=== PATIENT | female | born 1930 | race Caucasian/White ===

== ENCOUNTER → 2018-04-12 | Outpatient (CLI) | payer MEDICARE ==
[~2018-04-12] MED LIST: REGADENOSON 0.4 MG/5 ML SYR IV ONE
--- NOTE | 2018-04-14 13:16 | Cardiology Report ---
DATE OF STUDY: April 12, 2018 NUCLEAR GATED MYOCARDIAL PERFUSION SCAN The stress test is supervised by Dr. Lew Hurley. I read only the nuclear part of the stress test. Myoview injected 11 mCi per resting protocol and 27 mCi per stress protocol. This is a Lexiscan protocol. Lexiscan injected 0.4 mg intravenously as a stress agent. IMPRESSION: Normal gated myocardial perfusion scan. No evidence of ischemia or scar noted. Normal nuclear stress test. Thank you, Dr. Lew Hurley, for this nuclear interpretation consultation. Job#: [id number]
== END ==
LOC: NM 10:42
PROVIDERS: ATTEND Internal Medicine Cardiovascular Disease
DX: I11.0 Hypertensive heart disease with heart failure (principal); R94.31 Abnormal electrocardiogram [ECG] [EKG]; I48.0 Paroxysmal atrial fibrillation
CPT/HCPCS: 78452; 93017; A9502